=== PATIENT | female | born 1975 | race Two or more races ===

== ENCOUNTER 2020-08-21 11:15 | Inpatient (IN) | payer OTHER ==
[~2020-08-21] VITALS: Ht 160 cm; Wt 75.7 kg
== END 2020-08-28 15:32 | disposition home or self-care (01) | DRG 743 ==
LOC: O/R 08-26 05:30 → OB/GYN 08-26 05:30
PROVIDERS: ADMIT Specialist; ATTEND Specialist
PROC: 0UB70ZZ Excision of Bilateral Fallopian Tubes, Open Approach (ICD-10-PCS; 2020-08-26)
PROC: 0USG0ZZ Reposition Vagina, Open Approach (ICD-10-PCS; 2020-08-26)
PROC: 0UT90ZZ Resection of Uterus, Open Approach (ICD-10-PCS; principal; 2020-08-26 07:00)
DX: D25.1 Intramural leiomyoma of uterus (principal); D25.2 Subserosal leiomyoma of uterus; N72 Inflammatory disease of cervix uteri; N92.1 Excessive and frequent menstruation with irregular cycle; N83.8 Other noninflammatory disorders of ovary, fallopian tube and broad ligament